=== PATIENT | male | born 1945 | race Caucasian/White ===

== ENCOUNTER 2022-03-16 15:23 | Inpatient (IN) ==
[2022-03-16 16:00] LABS: Basophils % 0.2 % (0.0-0.8); Eosinophils # 0.2 10*3/uL (0.0-0.87); Hematocrit 41.7 VOL% (42.0-52.0); Hemoglobin 13.7 GM/DL (14.0-18.0); Immature Granulocytes % 0.5 %; Immature Granulocytes Absolute 0.03 #; Lymphocytes # 1.3 10*3/uL (1.4-4.0); Lymphocytes % 23.6 % (21.2-54.2); Mean Corpuscular HGB Conc 32.9 GM/DL (32-36); Mean Corpuscular Volume 90.1 FL (87-102); Monocytes # 0.6 10*3/uL (0.11-0.8); Monocytes % 11.3 % (1.7-12.7); Neutrophils % 61.4 % (38.7-73.9); Platelet Count 160 T/CUMM (130-400); Red Blood Count 4.63 MC/CUMM (3.8-5.5); Red Cell Distribution Width 13.5 % (9.3-17.3); White Blood Count 5.7 T/CUMM (4-12)
[2022-03-16] MEDS ORDERED: NITROGLYCERIN SL 0.4 MG TABLET SL ONE (16:03)
[2022-03-16] MEDS: NITROGLYCERIN SL 0.4 MG TABLET SL PRN ×3 (16:04→16:25)
[2022-03-16] MEDS ORDERED: ENOXAPARIN 100 MG/ML SYRINGE SUBCUT STA (16:04)
[2022-03-16 16:24] LABS: Alanine Aminotransferase 97 U/L (16-61); Albumin 4.2 G/DL (3.4-5.0); Alkaline Phosphatase 102 U/L (45-117); Aspartate Amino Transferase 48 U/L (0-37); Bilirubin,Total < 0.39 MG/DL (0.20-1.00); Blood Urea Nitrogen 21 MG/DL (7-18); Calcium 9.6 MG/DL (8.5-10.1); Carbon Dioxide 26 MMOL/L (21-32); Chloride 109 MMOL/L (98-107); Glucose 173 MG/DL (74-106); Osmolality,Calculated 285.4 MOS/KG (273-304); Potassium 4.3 MMOL/L (3.5-5.1); Sodium 140 MMOL/L (136-145); Total Protein 7.7 G/DL (6.4-8.2)
[2022-03-16 16:30] LABS: INR 0.9; PT Patient Result 10.3 SECS (10.1-12.1); Partial Thromboplastin Time 28.2 SECS (23.7-32.9)
[2022-03-16] MEDS ORDERED: ASPIRIN 325 MG TABLET ONE (17:50)
[2022-03-16] MEDS ORDERED: LABETALOL 20 MG/4 ML SYRINGE IV ONE ×4 (17:50→20:19)
[2022-03-16] MEDS ORDERED: ASPIRIN 325 MG TABLET PO ONE (17:58)
[2022-03-16] MEDS ORDERED: HEPARIN/NACL 0.9% 2 UNITS/ML 2,000 UNIT/1,000 ML BAG IV ONE (18:08)
[2022-03-16] MEDS ORDERED: MIDAZOLAM 2 MG/2 ML VIAL ONE (18:09)
[2022-03-16] MEDS ORDERED: HYDROmorphone 1 MG/1 ML SYRINGE ONE ×2 (18:09→18:49)
[2022-03-16] MEDS ORDERED: diphenhydrAMINE 50 MG/1 ML VIAL ONE (18:45)
[2022-03-16] MEDS ORDERED: TIROFIBAN 5,000 MCG/100 ML PREMIX IV ONE ×2 (19:16→21:44)
[2022-03-16] MEDS ORDERED: NITROGLYCERIN DRIP 50 MG/250 ML BOTTLE IV ONE (19:35)
[2022-03-16] MEDS ORDERED: HEPARIN/NACL 0.9% 2 UNITS/ML 1,000 UNIT/500 ML BAG IV ONE (19:59)
[2022-03-16] MEDS ORDERED: ATROPINE 1 MG/10 ML SYRINGE ONE (20:45)
[2022-03-16] MEDS ORDERED: MORPHINE 10 MG/1 ML VIAL ONE (20:47)
[2022-03-16] MEDS ORDERED: NITROPRUSSIDE 50 MG/2 ML VIAL ONE (20:56)
[2022-03-16] MEDS ORDERED: VERAPAMIL 5 MG/2 ML VIAL ONE (21:06)
[2022-03-16] MEDS ORDERED: ONDANSETRON 4 MG/2 ML VIAL IV PRN (21:53)
[2022-03-16] MEDS: NITROGLYCERIN DRIP 50 MG/250 ML BOTTLE IV PRN (21:59)
[2022-03-16] MEDS ORDERED: TIROFIBAN 5,000 MCG/100 ML PREMIX IV SCH (22:00)
[2022-03-16] MEDS ORDERED: TICAGRELOR 90 MG TABLET ONE (22:02)
[2022-03-16 22:31] LABS: Bacteria,Urine Occasional /HPF (Few); Mucus,Urine Occasional /LPF (Occasional); RBC,Urine 11 /HPF (0-4)
[2022-03-16 22:32] LABS: Bilirubin,Urine Negative (Negative); Blood, Urine Small mg/dL (Negative); Glucose,Urine (UA) Negative (Negative); Ketones,Urine Negative (Negative); Nitrite,Urine Negative (Negative); Protein,Urine Negative (Negative); Urine Appearance Clear (Clear); Urine Color Yellow (Yellow); Urine Specific Gravity 1.015 (1.001-1.035); Urine Urobilinogen 0.2 eU/dL (<2.0); Urine pH 5.5 (4.5-8.0)
[2022-03-16] MEDS: SODIUM CHLORIDE 0.9% 1,000 ML IV SCH (22:52)
[2022-03-16] MEDS ORDERED: carvediloL 3.125 MG TABLET PO SCH (23:15)
[2022-03-16] MEDS: MORPHINE 2 MG/1 ML SYRINGE IV PRN (23:17)
[2022-03-16] MEDS: LOSARTAN 50 MG TABLET PO SCH (23:17)
[2022-03-17] MEDS: MORPHINE 2 MG/1 ML SYRINGE IV PRN ×6 (02:32→14:31)
[2022-03-17] MEDS: ENOXAPARIN 100 MG/ML SYRINGE SUBCUT SCH ×2 (04:17→15:58)
[2022-03-17] MEDS ORDERED: LABETALOL 20 MG/4 ML SYRINGE IV PRN (05:01)
[2022-03-17] MEDS ORDERED: hydrALAZINE 20 MG/1 ML VIAL IV PRN ×2 (05:07→08:15)
[2022-03-17 05:32] LABS: Basophils % 0.1 % (0.0-0.8); Eosinophils % 0.1 % (0.00-10.9); Hematocrit 37.1 VOL% (42.0-52.0); Hemoglobin 11.6 GM/DL (14.0-18.0); Immature Granulocytes % 0.5 %; Immature Granulocytes Absolute 0.05 #; Lymphocytes # 0.7 10*3/uL (1.4-4.0); Lymphocytes % 6.5 % (21.2-54.2); Mean Corpuscular HGB Conc 31.3 GM/DL (32-36); Mean Corpuscular Volume 93.2 FL (87-102); Monocytes # 0.7 10*3/uL (0.11-0.8); Monocytes % 6.7 % (1.7-12.7); Neutrophils % 86.1 % (38.7-73.9); Platelet Count 150 T/CUMM (130-400); Red Blood Count 3.98 MC/CUMM (3.8-5.5); Red Cell Distribution Width 13.5 % (9.3-17.3); White Blood Count 10.5 T/CUMM (4-12)
[2022-03-17 05:47] LABS: Calcium 8.6 MG/DL (8.5-10.1); Osmolality,Calculated 287.3 MOS/KG (273-304); Potassium 4.7 MMOL/L (3.5-5.1)
[2022-03-17] MEDS ORDERED: hydrALAZINE 20 MG/1 ML VIAL IV SCH (06:00)
[2022-03-17] MEDS: SODIUM CHLORIDE 0.9% 1,000 ML IV SCH ×2 (07:26→17:32)
[2022-03-17] MEDS ORDERED: ZALEPLON 5 MG CAPSULE PO PRN (08:15)
[2022-03-17] MEDS ORDERED: SIMETHICONE CHEW 125 MG TABLET PO PRN (08:15)
[2022-03-17] MEDS ORDERED: ALUMINUM/MAGNES/SIMETH MAX STR 30 ML UDCUP PO PRN (08:15)
[2022-03-17] MEDS ORDERED: LACTULOSE 20 GM/30 ML UDCUP PO PRN (08:15)
[2022-03-17] MEDS ORDERED: MORPHINE 2 MG/1 ML SYRINGE IV PRN (08:15)
[2022-03-17] MEDS ORDERED: ONDANSETRON 4 MG/2 ML VIAL IV PRN (08:15)
[2022-03-17] MEDS ORDERED: ACETAMINOPHEN 325 MG TABLET PO PRN (08:15)
[2022-03-17] MEDS: LOSARTAN 50 MG TABLET PO SCH ×2 (08:26→20:23)
[2022-03-17] MEDS: CLORAZEPATE 3.75 MG TABLET PO PRN (08:30)
[2022-03-17] MEDS: ASPIRIN EC 81 MG TABLET PO SCH (08:30)
[2022-03-17] MEDS: TICAGRELOR 90 MG TABLET PO SCH ×2 (08:30→20:22)
[2022-03-17] MEDS: PANTOPRAZOLE 40 MG TABLET PO SCH (08:30)
[2022-03-17] MEDS: ROSUVASTATIN 20 MG TABLET PO SCH (08:30)
[2022-03-17] MEDS ORDERED: carvediloL 6.25 MG TABLET PO SCH (09:00)
[2022-03-17] MEDS ORDERED: PANTOPRAZOLE 40 MG TABLET PO SCH (09:00)
[2022-03-17] MEDS ORDERED: ROSUVASTATIN 20 MG TABLET PO SCH (09:00)
[2022-03-17] MEDS ORDERED: carvediloL 12.5 MG TABLET PO SCH (09:00)
[2022-03-17] MEDS: MULTIVITAMIN (CENTRUM) TABLET PO SCH (09:37)
[2022-03-17] MEDS: CHOLECALCIFEROL 1,000 UNIT TABLET PO SCH (09:37)
[2022-03-17] MEDS: NITROGLYCERIN DRIP 50 MG/250 ML BOTTLE IV PRN ×2 (10:28→17:33)
[2022-03-17] MEDS: CALCIUM CARBONATE CHEW 500 MG TABLET PO PRN (14:32)
[2022-03-17] MEDS ORDERED: HYDROmorphone 1 MG/1 ML SYRINGE IV ONE (15:51)
[2022-03-17] MEDS: carvediloL 25 MG TABLET PO SCH (20:23)
[2022-03-17] MEDS: ZALEPLON 5 MG CAPSULE PO PRN (22:46)
[2022-03-18] MEDS: NITROGLYCERIN DRIP 50 MG/250 ML BOTTLE IV PRN ×3 (00:04→16:54)
[2022-03-18] MEDS: MORPHINE 2 MG/1 ML SYRINGE IV PRN (02:51)
[2022-03-18 03:58] LABS: Eosinophils % 0.1 % (0.00-10.9); Hematocrit 30.8 VOL% (42.0-52.0); Hemoglobin 10.3 GM/DL (14.0-18.0); Immature Granulocytes % 0.5 %; Immature Granulocytes Absolute 0.05 #; Lymphocytes # 0.6 10*3/uL (1.4-4.0); Mean Corpuscular HGB Conc 33.4 GM/DL (32-36); Mean Platelet Volume 10.8 FL (9.6-12.0); Monocytes # 1.2 10*3/uL (0.11-0.8); Monocytes % 11.1 % (1.7-12.7); Neutrophils % 83.3 % (38.7-73.9); Platelet Count 126 T/CUMM (130-400); Red Cell Distribution Width 13.5 % (9.3-17.3)
[2022-03-18] MEDS: ENOXAPARIN 100 MG/ML SYRINGE SUBCUT SCH (04:10)
[2022-03-18] MEDS: SODIUM CHLORIDE 0.9% 1,000 ML IV SCH ×4 (04:10→17:23)
[2022-03-18 04:15] LABS: Calcium 8.3 MG/DL (8.5-10.1); Potassium 3.8 MMOL/L (3.5-5.1); Risk Ratio 3.54; VLDL Cholesterol 43.8 MG/DL
[2022-03-18] MEDS: MULTIVITAMIN (CENTRUM) TABLET PO SCH (08:15)
[2022-03-18] MEDS: TICAGRELOR 90 MG TABLET PO SCH ×2 (08:15→20:09)
[2022-03-18] MEDS: PANTOPRAZOLE 40 MG TABLET PO SCH (08:15)
[2022-03-18] MEDS: CHOLECALCIFEROL 1,000 UNIT TABLET PO SCH (08:15)
[2022-03-18] MEDS: ROSUVASTATIN 20 MG TABLET PO SCH (08:16)
[2022-03-18] MEDS: ASPIRIN EC 81 MG TABLET PO SCH (08:16)
[2022-03-18] MEDS: carvediloL 25 MG TABLET PO SCH ×2 (08:16→20:09)
[2022-03-18] MEDS: LOSARTAN 50 MG TABLET PO SCH ×2 (08:20→20:09)
[2022-03-18] MEDS: FUROSEMIDE 40 MG/4 ML VIAL IV SCH (12:04)
[2022-03-18] MEDS: chlorproMAZINE 25 MG TABLET PO PRN ×2 (12:05→20:16)
[2022-03-19] MEDS: NITROGLYCERIN DRIP 50 MG/250 ML BOTTLE IV PRN ×2 (01:44→21:04)
[2022-03-19] MEDS: SODIUM CHLORIDE 0.9% 1,000 ML IV SCH ×2 (01:44→12:36)
[2022-03-19 04:04] LABS: Basophils % 0.1 % (0.0-0.8); Hematocrit 27.3 VOL% (42.0-52.0); Hemoglobin 9.2 GM/DL (14.0-18.0); Immature Granulocytes % 0.6 %; Immature Granulocytes Absolute 0.07 #; Lymphocytes # 0.5 10*3/uL (1.4-4.0); Lymphocytes % 4.8 % (21.2-54.2); Mean Corpuscular HGB Conc 33.7 GM/DL (32-36); Mean Corpuscular Volume 87.5 FL (87-102); Mean Platelet Volume 10.8 FL (9.6-12.0); Monocytes # 1.2 10*3/uL (0.11-0.8); Monocytes % 10.9 % (1.7-12.7); Neutrophils % 83.6 % (38.7-73.9); Platelet Count 115 T/CUMM (130-400); Red Blood Count 3.12 MC/CUMM (3.8-5.5); Red Cell Distribution Width 13.6 % (9.3-17.3); White Blood Count 10.9 T/CUMM (4-12)
[2022-03-19 04:14] LABS: Calcium 8.2 MG/DL (8.5-10.1); Potassium 3.4 MMOL/L (3.5-5.1)
[2022-03-19 04:31] LABS: Lymphocytes 4 % (20-55); Total Cells Counted 100
[2022-03-19 04:32] LABS: Microcytosis 1+; Platelet Estimate Adequate
[2022-03-19] MEDS: POTASSIUM CHLORIDE 20 MEQ TABLET PO PRN ×3 (06:39→12:00)
[2022-03-19] MEDS: CHOLECALCIFEROL 1,000 UNIT TABLET PO SCH (08:33)
[2022-03-19] MEDS: MULTIVITAMIN (CENTRUM) TABLET PO SCH (08:33)
[2022-03-19] MEDS: ASPIRIN EC 81 MG TABLET PO SCH (08:33)
[2022-03-19] MEDS: ROSUVASTATIN 20 MG TABLET PO SCH (08:33)
[2022-03-19] MEDS: PANTOPRAZOLE 40 MG TABLET PO SCH (08:34)
[2022-03-19] MEDS: FUROSEMIDE 40 MG/4 ML VIAL IV SCH (08:34)
[2022-03-19] MEDS: TICAGRELOR 90 MG TABLET PO SCH ×2 (08:34→20:03)
[2022-03-19] MEDS: carvediloL 25 MG TABLET PO SCH ×2 (08:37→20:03)
[2022-03-19] MEDS: LOSARTAN 50 MG TABLET PO SCH ×2 (08:37→20:03)
[2022-03-19] MEDS ORDERED: FUROSEMIDE 40 MG/4 ML VIAL IV ONE (18:41)
[2022-03-19] MEDS: ALBUTEROL/IPRATROPIUM 3 ML NEB RESP TX PRN (18:50)
[2022-03-19] MEDS: MORPHINE 2 MG/1 ML SYRINGE IV PRN ×3 (18:55→21:12)
[2022-03-19] MEDS: chlorproMAZINE 25 MG TABLET PO PRN (19:27)
[2022-03-19] MEDS: CLORAZEPATE 3.75 MG TABLET PO PRN (20:03)
[2022-03-20 04:15] LABS: Basophils % 0.1 % (0.0-0.8); Hematocrit 31.2 VOL% (42.0-52.0); Hemoglobin 10.5 GM/DL (14.0-18.0); Immature Granulocytes % 0.6 %; Immature Granulocytes Absolute 0.07 #; Lymphocytes # 0.5 10*3/uL (1.4-4.0); Mean Corpuscular HGB Conc 33.7 GM/DL (32-36); Mean Corpuscular Volume 87.2 FL (87-102); Mean Platelet Volume 11.9 FL (9.6-12.0); Monocytes # 1.2 10*3/uL (0.11-0.8); Neutrophils % 85.3 % (38.7-73.9); Platelet Count 106 T/CUMM (130-400); Red Blood Count 3.58 MC/CUMM (3.8-5.5); Red Cell Distribution Width 13.7 % (9.3-17.3); White Blood Count 11.9 T/CUMM (4-12)
[2022-03-20] MEDS: MORPHINE 2 MG/1 ML SYRINGE IV PRN ×2 (04:24→22:09)
[2022-03-20 04:40] LABS: Calcium 7.8 MG/DL (8.5-10.1); Osmolality,Calculated 283.5 MOS/KG (273-304); Potassium 3.6 MMOL/L (3.5-5.1)
[2022-03-20 04:43] LABS: Lymphocytes 4 % (20-55); Platelet Estimate Adequate; Total Cells Counted 100
[2022-03-20] MEDS: POTASSIUM CHLORIDE 20 MEQ TABLET PO PRN (05:47)
[2022-03-20] MEDS: chlorproMAZINE 25 MG TABLET PO PRN ×2 (08:17→14:08)
[2022-03-20] MEDS: FUROSEMIDE 40 MG/4 ML VIAL IV SCH (09:08)
[2022-03-20] MEDS: carvediloL 25 MG TABLET PO SCH ×2 (09:08→20:53)
[2022-03-20] MEDS: PANTOPRAZOLE 40 MG TABLET PO SCH (09:08)
[2022-03-20] MEDS: LOSARTAN 50 MG TABLET PO SCH ×2 (09:08→20:53)
[2022-03-20] MEDS: MULTIVITAMIN (CENTRUM) TABLET PO SCH (09:08)
[2022-03-20] MEDS: ASPIRIN EC 81 MG TABLET PO SCH (09:08)
[2022-03-20] MEDS: TICAGRELOR 90 MG TABLET PO SCH ×2 (09:08→20:53)
[2022-03-20] MEDS: CHOLECALCIFEROL 1,000 UNIT TABLET PO SCH (09:08)
[2022-03-20] MEDS: ROSUVASTATIN 20 MG TABLET PO SCH (09:10)
[2022-03-20] MEDS: DILTIAZEM INJ 100 MG in SODIUM CHLORIDE 0.9% 100 ML IV SCH (18:45)
[2022-03-20] MEDS ORDERED: AMIODARONE INJ 150 MG in DEXTROSE 5% 100 ML IV ONE (19:01)
[2022-03-20] MEDS ORDERED: AMIODARONE INJ 450 MG in DEXTROSE 5% 241 ML IV SCH (19:30)
[2022-03-21] MEDS: ZALEPLON 5 MG CAPSULE PO PRN ×2 (01:40→21:46)
[2022-03-21] MEDS: chlorproMAZINE 25 MG TABLET PO PRN ×2 (01:40→15:06)
[2022-03-21] MEDS: AMIODARONE INJ 450 MG in DEXTROSE 5% 241 ML IV SCH ×2 (03:08→18:04)
[2022-03-21 03:55] LABS: Eosinophils % 0.3 % (0.00-10.9); Hematocrit 29.8 VOL% (42.0-52.0); Immature Granulocytes % 0.6 %; Immature Granulocytes Absolute 0.06 #; Lymphocytes # 0.7 10*3/uL (1.4-4.0); Lymphocytes % 6.9 % (21.2-54.2); Mean Corpuscular HGB Conc 33.6 GM/DL (32-36); Mean Corpuscular Volume 87.1 FL (87-102); Mean Platelet Volume 12.2 FL (9.6-12.0); Monocytes # 1.1 10*3/uL (0.11-0.8); Monocytes % 11.5 % (1.7-12.7); Neutrophils % 80.7 % (38.7-73.9); Platelet Count 123 T/CUMM (130-400); Red Blood Count 3.42 MC/CUMM (3.8-5.5); Red Cell Distribution Width 14.1 % (9.3-17.3); White Blood Count 9.6 T/CUMM (4-12)
[2022-03-21 04:12] LABS: Osmolality,Calculated 282.2 MOS/KG (273-304); Potassium 3.7 MMOL/L (3.5-5.1)
[2022-03-21] MEDS: CHOLECALCIFEROL 1,000 UNIT TABLET PO SCH (09:06)
[2022-03-21] MEDS: ASPIRIN EC 81 MG TABLET PO SCH (09:06)
[2022-03-21] MEDS: LOSARTAN 50 MG TABLET PO SCH ×2 (09:06→21:46)
[2022-03-21] MEDS: carvediloL 25 MG TABLET PO SCH ×2 (09:06→21:46)
[2022-03-21] MEDS: TICAGRELOR 90 MG TABLET PO SCH ×2 (09:06→21:46)
[2022-03-21] MEDS: FUROSEMIDE 40 MG/4 ML VIAL IV SCH (09:06)
[2022-03-21] MEDS: ROSUVASTATIN 20 MG TABLET PO SCH (09:06)
[2022-03-21] MEDS: MULTIVITAMIN (CENTRUM) TABLET PO SCH (09:06)
[2022-03-21] MEDS: PANTOPRAZOLE 40 MG TABLET PO SCH (09:06)
[2022-03-21] MEDS: ALBUTEROL/IPRATROPIUM 3 ML NEB RESP TX PRN (14:15)
[2022-03-21] MEDS: DILTIAZEM INJ 100 MG in SODIUM CHLORIDE 0.9% 100 ML IV SCH (18:05)
[2022-03-22 04:31] LABS: Basophils % 0.1 % (0.0-0.8); Eosinophils # 0.1 10*3/uL (0.0-0.87); Eosinophils % 0.7 % (0.00-10.9); Hematocrit 30.4 VOL% (42.0-52.0); Hemoglobin 10.2 GM/DL (14.0-18.0); Immature Granulocytes % 0.4 %; Immature Granulocytes Absolute 0.04 #; Lymphocytes # 0.5 10*3/uL (1.4-4.0); Lymphocytes % 5.1 % (21.2-54.2); Mean Corpuscular HGB Conc 33.6 GM/DL (32-36); Mean Corpuscular Volume 86.6 FL (87-102); Mean Platelet Volume 12.4 FL (9.6-12.0); Monocytes % 10.2 % (1.7-12.7); Neutrophils % 83.5 % (38.7-73.9); Platelet Count 161 T/CUMM (130-400); Red Blood Count 3.51 MC/CUMM (3.8-5.5); White Blood Count 9.9 T/CUMM (4-12)
[2022-03-22 04:53] LABS: Calcium 8.1 MG/DL (8.5-10.1); Osmolality,Calculated 282.4 MOS/KG (273-304); Potassium 3.3 MMOL/L (3.5-5.1)
[2022-03-22] MEDS: LOSARTAN 50 MG TABLET PO SCH ×2 (08:21→20:31)
[2022-03-22] MEDS: MULTIVITAMIN (CENTRUM) TABLET PO SCH (08:21)
[2022-03-22] MEDS: ASPIRIN EC 81 MG TABLET PO SCH (08:21)
[2022-03-22] MEDS: ROSUVASTATIN 20 MG TABLET PO SCH (08:21)
[2022-03-22] MEDS: carvediloL 25 MG TABLET PO SCH ×2 (08:21→20:31)
[2022-03-22] MEDS: TICAGRELOR 90 MG TABLET PO SCH ×2 (08:21→20:31)
[2022-03-22] MEDS: POTASSIUM CHLORIDE 20 MEQ TABLET PO PRN ×2 (08:21→10:52)
[2022-03-22] MEDS: FUROSEMIDE 40 MG/4 ML VIAL IV SCH (08:22)
[2022-03-22] MEDS: PANTOPRAZOLE 40 MG TABLET PO SCH (08:22)
[2022-03-22] MEDS: CHOLECALCIFEROL 1,000 UNIT TABLET PO SCH (08:22)
[2022-03-22] MEDS: AMIODARONE INJ 450 MG in DEXTROSE 5% 241 ML IV SCH (09:24)
[2022-03-22] MEDS: AMIODARONE 200 MG TABLET PO SCH ×2 (10:38→20:31)
[2022-03-22] MEDS: CLORAZEPATE 3.75 MG TABLET PO PRN ×2 (10:52→20:31)
[2022-03-22] MEDS: DILTIAZEM INJ 100 MG in SODIUM CHLORIDE 0.9% 100 ML IV SCH (20:37)
[2022-03-22] MEDS: ZALEPLON 5 MG CAPSULE PO PRN (22:26)
[2022-03-23 05:01] LABS: Basophils % 0.1 % (0.0-0.8); Eosinophils # 0.1 10*3/uL (0.0-0.87); Eosinophils % 0.7 % (0.00-10.9); Hematocrit 29.7 VOL% (42.0-52.0); Immature Granulocytes % 0.4 %; Immature Granulocytes Absolute 0.04 #; Lymphocytes # 0.6 10*3/uL (1.4-4.0); Lymphocytes % 6.1 % (21.2-54.2); Mean Corpuscular HGB Conc 33.7 GM/DL (32-36); Mean Corpuscular Volume 87.4 FL (87-102); Mean Platelet Volume 12.5 FL (9.6-12.0); Monocytes # 1.2 10*3/uL (0.11-0.8); Monocytes % 12.7 % (1.7-12.7); Platelet Count 204 T/CUMM (130-400); Red Cell Distribution Width 14.2 % (9.3-17.3); White Blood Count 9.5 T/CUMM (4-12)
[2022-03-23 05:20] LABS: Osmolality,Calculated 278.7 MOS/KG (273-304); Potassium 4.7 MMOL/L (3.5-5.1)
[2022-03-23] MEDS: TICAGRELOR 90 MG TABLET PO SCH ×2 (08:54→20:28)
[2022-03-23] MEDS: carvediloL 25 MG TABLET PO SCH ×2 (08:54→20:28)
[2022-03-23] MEDS: PANTOPRAZOLE 40 MG TABLET PO SCH (08:54)
[2022-03-23] MEDS: CHOLECALCIFEROL 1,000 UNIT TABLET PO SCH (08:54)
[2022-03-23] MEDS: AMIODARONE 200 MG TABLET PO SCH ×2 (08:54→20:28)
[2022-03-23] MEDS: LOSARTAN 50 MG TABLET PO SCH ×2 (08:54→20:28)
[2022-03-23] MEDS: FUROSEMIDE 40 MG/4 ML VIAL IV SCH (08:54)
[2022-03-23] MEDS: ASPIRIN EC 81 MG TABLET PO SCH (08:54)
[2022-03-23] MEDS: MULTIVITAMIN (CENTRUM) TABLET PO SCH (08:54)
[2022-03-23] MEDS: ROSUVASTATIN 20 MG TABLET PO SCH (08:57)
[2022-03-23] MEDS: ALBUTEROL/IPRATROPIUM 3 ML NEB RESP TX PRN (09:12)
[2022-03-23] MEDS: ZALEPLON 5 MG CAPSULE PO PRN (20:29)
[2022-03-24 05:58] LABS: Basophils % 0.1 % (0.0-0.8); Eosinophils % 0.2 % (0.00-10.9); Hematocrit 32.5 VOL% (42.0-52.0); Hemoglobin 10.5 GM/DL (14.0-18.0); Immature Granulocytes % 0.8 %; Lymphocytes # 0.5 10*3/uL (1.4-4.0); Lymphocytes % 4.4 % (21.2-54.2); Mean Corpuscular HGB Conc 32.3 GM/DL (32-36); Mean Corpuscular Volume 88.6 FL (87-102); Mean Platelet Volume 11.4 FL (9.6-12.0); Monocytes # 1.5 10*3/uL (0.11-0.8); Neutrophils % 82.5 % (38.7-73.9); Platelet Count 342 T/CUMM (130-400); Red Blood Count 3.67 MC/CUMM (3.8-5.5); Red Cell Distribution Width 14.7 % (9.3-17.3); White Blood Count 12.3 T/CUMM (4-12)
[2022-03-24 06:18] LABS: Calcium 9.4 MG/DL (8.5-10.1); Osmolality,Calculated 283.5 MOS/KG (273-304); Potassium 3.8 MMOL/L (3.5-5.1)
[2022-03-24 06:32] LABS: Anisocytosis Slight; Band Neutrophils 1 % (0-10); Eosinophils 1 % (0-10); Lymphocytes 7 % (20-55); Platelet Estimate Normal; Total Cells Counted 100
[2022-03-24] MEDS ORDERED: ALBUTEROL/IPRATROPIUM 3 ML NEB RESP TX SCH (07:30)
[2022-03-24] MEDS: LEVALBUTEROL 0.63 MG/3 ML NEB RESP TX SCH ×3 (08:20→19:36)
[2022-03-24] MEDS: TICAGRELOR 90 MG TABLET PO SCH ×2 (09:11→20:59)
[2022-03-24] MEDS: carvediloL 25 MG TABLET PO SCH ×2 (09:11→20:59)
[2022-03-24] MEDS: AMIODARONE 200 MG TABLET PO SCH ×2 (09:12→21:00)
[2022-03-24] MEDS: PANTOPRAZOLE 40 MG TABLET PO SCH (09:12)
[2022-03-24] MEDS: CHOLECALCIFEROL 1,000 UNIT TABLET PO SCH (09:12)
[2022-03-24] MEDS: ASPIRIN EC 81 MG TABLET PO SCH (09:12)
[2022-03-24] MEDS: ROSUVASTATIN 20 MG TABLET PO SCH (09:13)
[2022-03-24] MEDS: LOSARTAN 50 MG TABLET PO SCH ×2 (09:13→20:59)
[2022-03-24] MEDS: MULTIVITAMIN (CENTRUM) TABLET PO SCH (09:13)
[2022-03-24] MEDS: FUROSEMIDE 40 MG/4 ML VIAL IV SCH ×2 (10:29→15:14)
[2022-03-24] MEDS: MORPHINE 2 MG/1 ML SYRINGE IV PRN (15:15)
[2022-03-25] MEDS: LEVALBUTEROL 0.63 MG/3 ML NEB RESP TX SCH ×2 (00:49→07:28)
[2022-03-25 04:35] LABS: Basophils % 0.1 % (0.0-0.8); Eosinophils % 0.1 % (0.00-10.9); Hematocrit 32.4 VOL% (42.0-52.0); Hemoglobin 10.6 GM/DL (14.0-18.0); Immature Granulocytes % 0.9 %; Immature Granulocytes Absolute 0.11 #; Lymphocytes # 0.7 10*3/uL (1.4-4.0); Lymphocytes % 5.3 % (21.2-54.2); Mean Corpuscular HGB Conc 32.7 GM/DL (32-36); Mean Platelet Volume 10.9 FL (9.6-12.0); Monocytes # 1.4 10*3/uL (0.11-0.8); Monocytes % 10.8 % (1.7-12.7); Neutrophils % 82.8 % (38.7-73.9); Platelet Count 376 T/CUMM (130-400); Red Blood Count 3.68 MC/CUMM (3.8-5.5); Red Cell Distribution Width 14.8 % (9.3-17.3); White Blood Count 12.5 T/CUMM (4-12)
[2022-03-25 04:52] LABS: Calcium 8.4 MG/DL (8.5-10.1); Osmolality,Calculated 292.1 MOS/KG (273-304)
[2022-03-25] MEDS: FUROSEMIDE 40 MG/4 ML VIAL IV SCH ×2 (07:42→16:00)
[2022-03-25] MEDS: AMIODARONE 200 MG TABLET PO SCH ×2 (09:12→20:48)
[2022-03-25] MEDS: MULTIVITAMIN (CENTRUM) TABLET PO SCH (09:12)
[2022-03-25] MEDS: CHOLECALCIFEROL 1,000 UNIT TABLET PO SCH (09:12)
[2022-03-25] MEDS: ASPIRIN EC 81 MG TABLET PO SCH (09:12)
[2022-03-25] MEDS: ROSUVASTATIN 20 MG TABLET PO SCH (09:12)
[2022-03-25] MEDS: PANTOPRAZOLE 40 MG TABLET PO SCH (09:12)
[2022-03-25] MEDS: carvediloL 25 MG TABLET PO SCH ×2 (09:13→20:48)
[2022-03-25] MEDS: TICAGRELOR 90 MG TABLET PO SCH ×2 (09:13→20:48)
[2022-03-25] MEDS: LOSARTAN 50 MG TABLET PO SCH ×2 (09:15→20:48)
[2022-03-25] MEDS: cefTRIAXone 1,000 MG in SODIUM CHLORIDE 0.9% 100 ML IV SCH (11:31)
[2022-03-25] MEDS: methylPREDNISolone SOD SUC 40 MG/1 ML VIAL IV SCH ×2 (11:37→20:48)
[2022-03-25] MEDS: ALBUTEROL/IPRATROPIUM 3 ML NEB RESP TX SCH ×2 (12:24→19:22)
[2022-03-25] MEDS: MELATONIN 3 MG TABLET PO PRN (21:03)
[2022-03-25] MEDS ORDERED: ALBUTEROL/IPRATROPIUM 3 ML NEB RESP TX STA (22:40)
[2022-03-26] MEDS ORDERED: FUROSEMIDE 40 MG/4 ML VIAL IM ONE (00:15)
[2022-03-26] MEDS: ALBUTEROL/IPRATROPIUM 3 ML NEB RESP TX SCH ×4 (00:25→19:05)
[2022-03-26] MEDS: methylPREDNISolone SOD SUC 40 MG/1 ML VIAL IV SCH ×3 (04:24→20:53)
[2022-03-26 04:25] LABS: Basophils % 0.1 % (0.0-0.8); Hematocrit 30.3 VOL% (42.0-52.0); Hemoglobin 9.9 GM/DL (14.0-18.0); Immature Granulocytes Absolute 0.11 #; Lymphocytes # 0.3 10*3/uL (1.4-4.0); Lymphocytes % 2.7 % (21.2-54.2); Mean Corpuscular HGB Conc 32.7 GM/DL (32-36); Mean Corpuscular Volume 87.3 FL (87-102); Mean Platelet Volume 10.8 FL (9.6-12.0); Monocytes # 0.6 10*3/uL (0.11-0.8); Monocytes % 5.6 % (1.7-12.7); Neutrophils % 90.6 % (38.7-73.9); Platelet Count 440 T/CUMM (130-400); Red Blood Count 3.47 MC/CUMM (3.8-5.5); Red Cell Distribution Width 14.7 % (9.3-17.3); White Blood Count 10.8 T/CUMM (4-12)
[2022-03-26 04:41] LABS: Calcium 8.6 MG/DL (8.5-10.1); Osmolality,Calculated 293.7 MOS/KG (273-304)
[2022-03-26 05:13] LABS: Lymphocytes 2 % (20-55); Platelet Estimate Increased; Total Cells Counted 100
[2022-03-26] MEDS: FUROSEMIDE 40 MG/4 ML VIAL IV SCH ×2 (09:00→16:20)
[2022-03-26] MEDS: ASPIRIN EC 81 MG TABLET PO SCH (09:22)
[2022-03-26] MEDS: LOSARTAN 50 MG TABLET PO SCH ×2 (09:22→20:54)
[2022-03-26] MEDS: TICAGRELOR 90 MG TABLET PO SCH ×2 (09:22→20:54)
[2022-03-26] MEDS: MULTIVITAMIN (CENTRUM) TABLET PO SCH (09:22)
[2022-03-26] MEDS: PANTOPRAZOLE 40 MG TABLET PO SCH (09:22)
[2022-03-26] MEDS: AMIODARONE 200 MG TABLET PO SCH ×2 (09:23→20:54)
[2022-03-26] MEDS: ROSUVASTATIN 20 MG TABLET PO SCH (09:23)
[2022-03-26] MEDS: CHOLECALCIFEROL 1,000 UNIT TABLET PO SCH (09:23)
[2022-03-26] MEDS: carvediloL 25 MG TABLET PO SCH ×2 (09:23→20:54)
[2022-03-26] MEDS: cefTRIAXone 1,000 MG in SODIUM CHLORIDE 0.9% 100 ML IV SCH (11:58)
[2022-03-26] MEDS: MELATONIN 3 MG TABLET PO PRN (20:54)
[2022-03-26] MEDS: ASCORBIC ACID 500 MG TABLET PO SCH (20:54)
[2022-03-26] MEDS: ENOXAPARIN 40 MG/0.4 ML SYRINGE SUBCUT SCH (20:55)
[2022-03-27] MEDS: ALBUTEROL/IPRATROPIUM 3 ML NEB RESP TX SCH ×4 (01:20→19:06)
[2022-03-27] MEDS: methylPREDNISolone SOD SUC 40 MG/1 ML VIAL IV SCH ×3 (04:13→20:52)
[2022-03-27 04:32] LABS: Hematocrit 29.9 VOL% (42.0-52.0); Hemoglobin 9.7 GM/DL (14.0-18.0); Lymphocytes # 0.3 10*3/uL (1.4-4.0); Lymphocytes % 2.5 % (21.2-54.2); Mean Corpuscular HGB Conc 32.4 GM/DL (32-36); Mean Corpuscular Volume 87.7 FL (87-102); Mean Platelet Volume 10.8 FL (9.6-12.0); Monocytes # 0.7 10*3/uL (0.11-0.8); Monocytes % 6.3 % (1.7-12.7); Neutrophils % 90.2 % (38.7-73.9); Platelet Count 506 T/CUMM (130-400); Red Blood Count 3.41 MC/CUMM (3.8-5.5); Red Cell Distribution Width 14.6 % (9.3-17.3); White Blood Count 10.4 T/CUMM (4-12)
[2022-03-27 04:46] LABS: Calcium 8.2 MG/DL (8.5-10.1); Osmolality,Calculated 303.5 MOS/KG (273-304); Potassium 4.1 MMOL/L (3.5-5.1)
[2022-03-27 04:54] LABS: Hypochromia Slight; Lymphocytes 2 % (20-55); Microcytosis Slight; Platelet Estimate Adequate; Total Cells Counted 100
[2022-03-27] MEDS ORDERED: INSULIN REGULAR 100 UNIT/ML SUBCUT ONE (08:05)
[2022-03-27] MEDS: FUROSEMIDE 40 MG/4 ML VIAL IV SCH ×2 (08:45→16:49)
[2022-03-27] MEDS: DOCUSATE SODIUM 100 MG CAPSULE PO PRN (08:45)
[2022-03-27] MEDS: AMIODARONE 200 MG TABLET PO SCH ×2 (08:45→20:53)
[2022-03-27] MEDS: ROSUVASTATIN 20 MG TABLET PO SCH (08:46)
[2022-03-27] MEDS: ASCORBIC ACID 500 MG TABLET PO SCH ×2 (08:47→20:53)
[2022-03-27] MEDS: ISOSORBIDE MONONITRATE 30 MG TABLET PO SCH ×2 (08:47→09:39)
[2022-03-27] MEDS: LOSARTAN 50 MG TABLET PO SCH (08:47)
[2022-03-27] MEDS: PANTOPRAZOLE 40 MG TABLET PO SCH (08:47)
[2022-03-27] MEDS: MULTIVITAMIN (CENTRUM) TABLET PO SCH (08:48)
[2022-03-27] MEDS: CHOLECALCIFEROL 1,000 UNIT TABLET PO SCH (08:48)
[2022-03-27] MEDS: carvediloL 25 MG TABLET PO SCH (08:48)
[2022-03-27] MEDS: ASPIRIN EC 81 MG TABLET PO SCH (08:48)
[2022-03-27] MEDS: TICAGRELOR 90 MG TABLET PO SCH ×2 (08:48→20:53)
[2022-03-27] MEDS ORDERED: MORPHINE 2 MG/1 ML SYRINGE ONE (08:53)
[2022-03-27] MEDS ORDERED: LOSARTAN 25 MG TABLET PO SCH (09:00)
[2022-03-27] MEDS ORDERED: MORPHINE 2 MG/1 ML SYRINGE IV ONE (09:20)
[2022-03-27] MEDS: carvediloL 6.25 MG TABLET PO SCH ×2 (09:20→18:00)
[2022-03-27] MEDS: CLORAZEPATE 3.75 MG TABLET PO PRN (09:53)
[2022-03-27] MEDS: cefTRIAXone 1,000 MG in SODIUM CHLORIDE 0.9% 100 ML IV SCH (12:00)
[2022-03-27] MEDS: INSULIN REGULAR 100 UNIT/ML SUBCUT SCH ×3 (12:30→20:53)
[2022-03-27] MEDS: ALPRAZolam 0.25 MG TABLET PO PRN ×2 (12:49→20:53)
[2022-03-27] MEDS: MORPHINE 2 MG/1 ML SYRINGE IV PRN (14:22)
[2022-03-27 19:38] LABS: Osmolality,Calculated 303.7 MOS/KG (273-304); Potassium 4.5 MMOL/L (3.5-5.1)
[2022-03-27] MEDS: ENOXAPARIN 40 MG/0.4 ML SYRINGE SUBCUT SCH (20:52)
[2022-03-28] MEDS: ALBUTEROL/IPRATROPIUM 3 ML NEB RESP TX SCH ×4 (00:30→19:20)
[2022-03-28] MEDS: methylPREDNISolone SOD SUC 40 MG/1 ML VIAL IV SCH ×2 (02:49→15:35)
[2022-03-28 05:10] LABS: Basophils % 0.1 % (0.0-0.8); Hematocrit 30.1 VOL% (42.0-52.0); Hemoglobin 9.9 GM/DL (14.0-18.0); Immature Granulocytes % 1.1 %; Immature Granulocytes Absolute 0.12 #; Lymphocytes # 0.3 10*3/uL (1.4-4.0); Lymphocytes % 2.5 % (21.2-54.2); Mean Corpuscular HGB Conc 32.9 GM/DL (32-36); Mean Corpuscular Volume 87.5 FL (87-102); Mean Platelet Volume 10.5 FL (9.6-12.0); Monocytes # 0.8 10*3/uL (0.11-0.8); Monocytes % 6.7 % (1.7-12.7); Neutrophils % 89.6 % (38.7-73.9); Platelet Count 493 T/CUMM (130-400); Red Blood Count 3.44 MC/CUMM (3.8-5.5); Red Cell Distribution Width 14.6 % (9.3-17.3); White Blood Count 11.2 T/CUMM (4-12)
[2022-03-28 05:20] LABS: Calcium 8.7 MG/DL (8.5-10.1); Osmolality,Calculated 291.7 MOS/KG (273-304); Potassium 4.2 MMOL/L (3.5-5.1)
[2022-03-28 05:37] LABS: Lymphocytes 1 % (20-55); Total Cells Counted 100
[2022-03-28 05:38] LABS: Hypochromia Slight; Microcytosis Slight; Platelet Estimate Adequate
[2022-03-28] MEDS: TICAGRELOR 90 MG TABLET PO SCH ×2 (08:49→21:16)
[2022-03-28] MEDS: CHOLECALCIFEROL 1,000 UNIT TABLET PO SCH (08:49)
[2022-03-28] MEDS: INSULIN REGULAR 100 UNIT/ML SUBCUT SCH ×4 (08:49→21:15)
[2022-03-28] MEDS: ROSUVASTATIN 20 MG TABLET PO SCH (08:49)
[2022-03-28] MEDS: carvediloL 6.25 MG TABLET PO SCH ×2 (08:50→17:40)
[2022-03-28] MEDS: AMIODARONE 200 MG TABLET PO SCH ×2 (08:50→21:16)
[2022-03-28] MEDS: FUROSEMIDE 40 MG/4 ML VIAL IV SCH ×2 (08:50→15:38)
[2022-03-28] MEDS: MULTIVITAMIN (CENTRUM) TABLET PO SCH (08:50)
[2022-03-28] MEDS: ASCORBIC ACID 500 MG TABLET PO SCH ×2 (08:50→21:19)
[2022-03-28] MEDS: ISOSORBIDE MONONITRATE 30 MG TABLET PO SCH (08:50)
[2022-03-28] MEDS: CLORAZEPATE 3.75 MG TABLET PO PRN (08:51)
[2022-03-28] MEDS: ASPIRIN EC 81 MG TABLET PO SCH (08:51)
[2022-03-28] MEDS: PANTOPRAZOLE 40 MG TABLET PO SCH (08:51)
[2022-03-28] MEDS ORDERED: INSULIN GLARGINE 100 UNIT/ML SUBCUT ONE (10:59)
[2022-03-28] MEDS ORDERED: FUROSEMIDE 20 MG/2 ML VIAL IV ONE (11:00)
[2022-03-28] MEDS: cefTRIAXone 1,000 MG in SODIUM CHLORIDE 0.9% 100 ML IV SCH (11:34)
[2022-03-28] MEDS: DOCUSATE SODIUM 100 MG CAPSULE PO PRN (21:15)
[2022-03-28] MEDS: ENOXAPARIN 40 MG/0.4 ML SYRINGE SUBCUT SCH (21:15)
[2022-03-28] MEDS: ALPRAZolam 0.25 MG TABLET PO PRN (21:16)
[2022-03-28] MEDS: MELATONIN 3 MG TABLET PO PRN (21:16)
[2022-03-29] MEDS: ALBUTEROL/IPRATROPIUM 3 ML NEB RESP TX SCH ×3 (00:12→13:02)
[2022-03-29] MEDS: methylPREDNISolone SOD SUC 40 MG/1 ML VIAL IV SCH ×2 (04:51→15:50)
[2022-03-29 06:07] LABS: Basophils % 0.1 % (0.0-0.8); Hematocrit 31.2 VOL% (42.0-52.0); Hemoglobin 10.1 GM/DL (14.0-18.0); Immature Granulocytes % 1.2 %; Immature Granulocytes Absolute 0.17 #; Lymphocytes # 0.4 10*3/uL (1.4-4.0); Lymphocytes % 2.5 % (21.2-54.2); Mean Corpuscular HGB Conc 32.4 GM/DL (32-36); Mean Corpuscular Volume 88.6 FL (87-102); Mean Platelet Volume 10.5 FL (9.6-12.0); Monocytes # 1.2 10*3/uL (0.11-0.8); Monocytes % 8.4 % (1.7-12.7); Neutrophils % 87.8 % (38.7-73.9); Platelet Count 497 T/CUMM (130-400); Red Blood Count 3.52 MC/CUMM (3.8-5.5); Red Cell Distribution Width 14.7 % (9.3-17.3); White Blood Count 14.7 T/CUMM (4-12)
[2022-03-29 06:23] LABS: Calcium 8.7 MG/DL (8.5-10.1); Osmolality,Calculated 297.2 MOS/KG (273-304); Potassium 4.2 MMOL/L (3.5-5.1)
[2022-03-29 06:28] LABS: Hypochromia 1+; Microcytosis 1+; Platelet Estimate Adequate; Total Cells Counted 100
[2022-03-29] MEDS ORDERED: PROMETHAZINE 25 MG/1 ML VIAL IM ONE (07:30)
[2022-03-29] MEDS ORDERED: MEPERIDINE 50 MG/1 ML VIAL IM ONE (07:30)
[2022-03-29] MEDS ORDERED: MIDAZOLAM 2 MG/2 ML VIAL ONE (07:33)
[2022-03-29] MEDS ORDERED: MIDAZOLAM 10 MG/2 ML VIAL IV ONE (08:00)
[2022-03-29] MEDS ORDERED: LIDOCAINE 1% 20 ML VIAL MISC INJ ONE (08:00)
[2022-03-29] MEDS ORDERED: LIDOCAINE 2% 20 ML VIAL RESP TX ONE (08:00)
[2022-03-29] MEDS ORDERED: LIDOCAINE 2% VISCOUS 100 ML BOTTLE SWISH/SPIT ONE (08:00)
[2022-03-29] MEDS: FUROSEMIDE 40 MG/4 ML VIAL IV SCH ×2 (10:36→15:50)
[2022-03-29] MEDS: ASPIRIN EC 81 MG TABLET PO SCH (10:54)
[2022-03-29] MEDS: AMIODARONE 200 MG TABLET PO SCH ×2 (10:54→21:01)
[2022-03-29] MEDS: PANTOPRAZOLE 40 MG TABLET PO SCH (10:54)
[2022-03-29] MEDS: ISOSORBIDE MONONITRATE 30 MG TABLET PO SCH (10:54)
[2022-03-29] MEDS: ASCORBIC ACID 500 MG TABLET PO SCH ×2 (10:54→22:03)
[2022-03-29] MEDS: CHOLECALCIFEROL 1,000 UNIT TABLET PO SCH (10:56)
[2022-03-29] MEDS: LORATADINE 10 MG TABLET PO SCH (10:56)
[2022-03-29] MEDS: DAPAGLIFLOZIN 10 MG TABLET PO SCH (10:56)
[2022-03-29] MEDS: ROSUVASTATIN 20 MG TABLET PO SCH (10:56)
[2022-03-29] MEDS: MULTIVITAMIN (CENTRUM) TABLET PO SCH (10:56)
[2022-03-29] MEDS: carvediloL 6.25 MG TABLET PO SCH ×2 (10:56→17:21)
[2022-03-29] MEDS: TICAGRELOR 90 MG TABLET PO SCH ×2 (10:57→21:00)
[2022-03-29] MEDS: cefTRIAXone 1,000 MG in SODIUM CHLORIDE 0.9% 100 ML IV SCH (10:59)
[2022-03-29] MEDS: INSULIN REGULAR 100 UNIT/ML SUBCUT SCH ×4 (11:12→21:36)
[2022-03-29] MEDS: ENOXAPARIN 40 MG/0.4 ML SYRINGE SUBCUT SCH (21:00)
[2022-03-29] MEDS ORDERED: INSULIN GLARGINE 100 UNIT/ML SUBCUT SCH ×2 (21:00)
[2022-03-30] MEDS: ALBUTEROL/IPRATROPIUM 3 ML NEB RESP TX SCH ×5 (00:53→19:00)
[2022-03-30] MEDS: methylPREDNISolone SOD SUC 40 MG/1 ML VIAL IV SCH (03:04)
[2022-03-30 05:01] LABS: Basophils % 0.1 % (0.0-0.8); Hematocrit 33.4 VOL% (42.0-52.0); Hemoglobin 11.3 GM/DL (14.0-18.0); Immature Granulocytes % 0.9 %; Immature Granulocytes Absolute 0.16 #; Lymphocytes # 0.5 10*3/uL (1.4-4.0); Lymphocytes % 2.7 % (21.2-54.2); Mean Corpuscular HGB Conc 33.8 GM/DL (32-36); Mean Corpuscular Volume 87.7 FL (87-102); Mean Platelet Volume 10.4 FL (9.6-12.0); Monocytes # 1.4 10*3/uL (0.11-0.8); Monocytes % 8.3 % (1.7-12.7); NRBC # 0.02 10*3/uL; Platelet Count 565 T/CUMM (130-400); Red Blood Count 3.81 MC/CUMM (3.8-5.5); Red Cell Distribution Width 14.8 % (9.3-17.3); White Blood Count 16.9 T/CUMM (4-12)
[2022-03-30 05:23] LABS: Hypochromia Slight; Lymphocytes 1 % (20-55); Microcytosis Slight; Platelet Estimate Increased; Total Cells Counted 100
[2022-03-30 05:27] LABS: Albumin 2.8 G/DL (3.4-5.0); Bilirubin,Total 0.5 MG/DL (0.20-1.00); Calcium 8.6 MG/DL (8.5-10.1); Osmolality,Calculated 292.2 MOS/KG (273-304); Potassium 3.8 MMOL/L (3.5-5.1); Total Protein 6.9 G/DL (6.4-8.2)
[2022-03-30] MEDS ORDERED: SACUBITRIL/VALSARTAN 49-51 MG TABLET PO SCH (09:00)
[2022-03-30] MEDS: FUROSEMIDE 40 MG/4 ML VIAL IV SCH ×2 (09:07→15:21)
[2022-03-30] MEDS: INSULIN REGULAR 100 UNIT/ML SUBCUT SCH ×3 (09:18→16:57)
[2022-03-30] MEDS: ROSUVASTATIN 20 MG TABLET PO SCH (09:19)
[2022-03-30] MEDS: AMIODARONE 200 MG TABLET PO SCH (09:19)
[2022-03-30] MEDS: CHOLECALCIFEROL 1,000 UNIT TABLET PO SCH (09:19)
[2022-03-30] MEDS: ISOSORBIDE MONONITRATE 30 MG TABLET PO SCH (09:19)
[2022-03-30] MEDS: ASCORBIC ACID 500 MG TABLET PO SCH (09:19)
[2022-03-30] MEDS: TICAGRELOR 90 MG TABLET PO SCH (09:19)
[2022-03-30] MEDS: DAPAGLIFLOZIN 10 MG TABLET PO SCH (09:19)
[2022-03-30] MEDS: PANTOPRAZOLE 40 MG TABLET PO SCH (09:19)
[2022-03-30] MEDS: MULTIVITAMIN (CENTRUM) TABLET PO SCH (09:19)
[2022-03-30] MEDS: CALCIUM CARBONATE CHEW 500 MG TABLET PO PRN (09:19)
[2022-03-30] MEDS: LORATADINE 10 MG TABLET PO SCH (09:19)
[2022-03-30] MEDS: ASPIRIN EC 81 MG TABLET PO SCH (09:20)
[2022-03-30] MEDS: carvediloL 6.25 MG TABLET PO SCH ×2 (09:20→16:57)
[2022-03-30] MEDS ORDERED: FUROSEMIDE 40 MG/4 ML VIAL IV ONE (09:37)
[2022-03-30] MEDS: cefTRIAXone 1,000 MG in SODIUM CHLORIDE 0.9% 100 ML IV SCH (11:49)
[2022-03-30] MEDS ORDERED: POTASSIUM CHLORIDE RIDER 10 MEQ/100 ML PREMIX IV PRN (12:08)
[2022-03-30] MEDS ORDERED: MAGNESIUM SULF RIDER 2 GM/50 ML PREMIX IV PRN (12:08)
[2022-03-30] MEDS ORDERED: DIAZEPAM 5 MG TABLET PO ONE (12:08)
[2022-03-30] MEDS ORDERED: diphenhydrAMINE CAP 50 MG CAPSULE PO ONE (12:08)
[2022-03-30] MEDS ORDERED: HEPARIN/NACL 0.9% 2 UNITS/ML 2,000 UNIT/1,000 ML BAG IV ONE (12:45)
[2022-03-30] MEDS ORDERED: MIDAZOLAM 2 MG/2 ML VIAL ONE (13:36)
[2022-03-30 13:53] VITALS: BP 128/70
[2022-03-30 15:44] LABS: Bacteria,Urine Occasional /HPF (Few); Mucus,Urine Occasional /LPF (Occasional); RBC,Urine 2 /HPF (0-4)
[2022-03-30 15:45] LABS: Bilirubin,Urine Negative (Negative); Blood, Urine Negative (Negative); Glucose,Urine (UA) >=1000 mg/dL (Negative); Ketones,Urine Negative (Negative); Nitrite,Urine Negative (Negative); Protein,Urine Negative (Negative); Urine Appearance Clear (Clear); Urine Color Yellow (Yellow); Urine Urobilinogen 0.2 eU/dL (<2.0)
[2022-03-30] MEDS: MORPHINE 2 MG/1 ML SYRINGE IV PRN (18:22)
[2022-03-30] MEDS ORDERED: traZODone 50 MG TABLET PO SCH (21:00)
[2022-03-31] MEDS ORDERED: POLYETHYLENE GLYCOL POWDER 17 GM PACK PO SCH (09:00)
== END 2022-03-30 20:45 | disposition hospice, home (50) | DRG 246 ==
LOC: N.EDINP 15:23 → N.ED 15:23 → N.2W 17:07 → N.ICU 22:04 → N.CC 03-17 12:16 → N.TELES 03-24 02:29 → N.ICU 03-30 14:52
PROVIDERS: ADMIT Internal Medicine Cardiovascular Disease; ATTEND Internal Medicine Cardiovascular Disease
PROC: CLCCHCL (ICD-10-PCS; 2022-03-16 18:45)